=== PATIENT | male | born 1980 | race Caucasian/White ===

== ENCOUNTER 2018-04-14 19:32 | Emergency (ER) | payer SELFPAY ==
[~2018-04-14] VITALS: Ht 185.4 cm; Wt 120.7 kg
[2018-04-14 19:49] VITALS: Ht 185.4 cm; Wt 120.7 kg
[2018-04-14 20:22] VITALS: BP 132/81
== END 2018-04-14 20:23 | disposition left against medical advice (07) ==
LOC: ED 19:32
DX: Z53.21 Procedure and treatment not carried out due to patient leaving prior to being seen by health care provider (principal)

== ENCOUNTER 2020-02-04 01:09 | Emergency (ER) | payer OTHER ==
[~2020-02-04] VITALS: Ht 185.4 cm; Wt 120.2 kg
[2020-02-04 01:15] VITALS: BP 146/102; Ht 185.4 cm; Wt 120.2 kg
== END 2020-02-04 02:39 | disposition other institution (70) ==
LOC: ED 01:09
DX: S00.01XA Abrasion of scalp, initial encounter (principal); S09.8XXA Other specified injuries of head, initial encounter; Z98.890 Other specified postprocedural states; Y04.8XXA Assault by other bodily force, initial encounter; Y93.89 Activity, other specified; Y92.89 Other specified places as the place of occurrence of the external cause; Y99.8 Other external cause status

== ENCOUNTER 2020-02-04 01:09 | Emergency (ER) | payer OTHER | END 2020-02-04 02:39 | disposition other institution (70) | LOC: ED 01:09 | DX: Z02.89 Encounter for other administrative examinations (principal) ==